=== PATIENT | male | born 1950 | race Caucasian/White ===

== ENCOUNTER → 2022-11-24 | Outpatient (RCR) | payer MEDICARE | END | disposition home or self-care (01) | LOC: ONC 11-03 09:59 | PROVIDERS: ATTEND Radiology Radiation Oncology | DX: Z51.0 Encounter for antineoplastic radiation therapy (principal); C69.02 Malignant neoplasm of left conjunctiva; F17.210 Nicotine dependence, cigarettes, uncomplicated | CPT/HCPCS: 77300; 77301; 77334; 77338; 77386; 99205 ==

== ENCOUNTER → 2022-12-22 | Outpatient (RCR) | payer MEDICARE | END | disposition home or self-care (01) | LOC: ONC 11-25 15:01 | PROVIDERS: ATTEND Radiology Radiation Oncology | DX: Z51.0 Encounter for antineoplastic radiation therapy (principal); C69.02 Malignant neoplasm of left conjunctiva | CPT/HCPCS: 77336; 77386 ==

== ENCOUNTER 2023-01-21 08:36 | Outpatient (RCR) | payer MEDICARE | END 2023-01-22 | disposition home or self-care (01) | LOC: ONC 08:36 | PROVIDERS: ATTEND Radiology Radiation Oncology | DX: Z51.0 Encounter for antineoplastic radiation therapy (principal); C69.02 Malignant neoplasm of left conjunctiva | CPT/HCPCS: 77336; 77386; 99213 ==

== ENCOUNTER 2023-04-22 09:19 | Outpatient (RCR) | payer MEDICARE | END 2023-04-23 | disposition home or self-care (01) | LOC: ONC 09:19 | PROVIDERS: ATTEND Radiology Radiation Oncology | DX: C69.02 Malignant neoplasm of left conjunctiva (principal) | CPT/HCPCS: 99213 ==